=== PATIENT | male | born 1995 | race Caucasian/White ===

== ENCOUNTER 2018-12-27 15:53 | Emergency (ER) | payer BC ==
[~2018-12-27] VITALS: Ht 175.3 cm; Wt 90.7 kg
[~2018-12-27 15:53] MED LIST: CEPH500C PO
--- OUTSIDE RECORDS SUMMARY | 2018-12-27 15:57 | XMS REPORT ---
Author PELON Moreno [facility] e[employer] Address Unknown Phone Unavailable Care Team Providers Care Nursing Staff Development Coordinator Name Role Phone PELON CRANE CP Unavailable Allergies No Known Allergies Problems Problem Type Condition Code Onset Dates Condition Status Problem Other specified viral warts 078.19 Active Assessment Visit for TB skin test Z11.1 Active Problem Other general medical examination for administrative purposes V70.3 Active Medications No Known Medications Procedures Procedure Coding System Code Date TB INTRADERMAL TEST CPT-4 26183 April 13, 2016 Results No Known Results Summary Purpose eClinicalWorks Submission
--- OUTSIDE RECORDS SUMMARY | 2018-12-27 15:57 | XMS REPORT | Continuity of Care Document ---
Author Author [facility] Address Unknown Phone Unavailable Allergies Active Description Code Type Severity Reaction Onset Reported/Identified Relationship to Patient Clinical Status Yes No Known Drug Allergies [id number] Drug Allergy Unknown N/A 12/17/2013 Medications There is no data. Problems Date Dx Coded Attending Type Code Diagnosis Diagnosed By 07/13/2013 OSBALDO TOVAR APRN 078.19 WARTS, COMMON 07/13/2013 RACHID OWENS APRN 078.19 WARTS, COMMON 12/17/2013 ROBI DELGADO MD Ot 927.3 CRUSHING INJURY FINGER 12/17/2013 ROBI DELGADO MD Ot E000.8 OTHER EXTERNAL CAUSE STATUS 12/17/2013 ROBI DELGADO MD Ot E013.9 OTHER HOUSEHOLD MAINTENANCE 12/17/2013 ROBI DELGADO MD Ot E849.0 ACCIDENT IN HOME 12/17/2013 ROBI DELGADO MD Ot E918 CAUGHT BETWEEN OBJECTS 05/05/2014 RACHID OWENS APRN V70.3 SPORTS PHYSICAL Procedures [place] [address] WART DESTRUCT 1-14 (CRYO) 07/13/2013 04672 VISUAL ACUITY SCREEN 05/12/2014 Results There is no data. Encounters ACCT No. Visit Date/Time Discharge Status Pt. Type Provider Facility Loc./Unit Complaint [id number] 05/05/2014 09:55:00 05/05/2014 23:59:59 CLS Outpatient RACHID OWENS APRN [id number] 07/13/2013 14:35:00 07/13/2013 23:59:59 CLS Outpatient OSBALDO TOVAR APRN [id number] 12/17/2013 09:45:00 12/17/2013 11:04:00 DIS Emergency ROBI DELGADO MD Via [facility] ER LEFT MIDDLE FINGER LAC
--- OUTSIDE RECORDS SUMMARY | 2018-12-27 15:57 | XMS REPORT ---
Author RACHID Melendrez Organization [employer] Address Unknown Phone Unavailable Care Team Providers Care General Merchandise Salesperson Name Role Phone RACHID OWENS CP Unavailable Allergies No Known Allergies Problems Problem Type Condition Code Onset Dates Condition Status Problem Other specified viral warts 078.19 Active Assessment Encounter for immunization Z23 Active Problem Other general medical examination for administrative purposes V70.3 Active Medications No Known Medications Procedures Procedure Coding System Code Date PROQUAD (MMR/VARICELLA) CPT-4 08083 Aug 25, 2015 SINGLE IMMUNIZATION ADMIN CPT-4 82681 Aug 25, 2015 MENINGOCOCCAL (MENVEO) CPT-4 52911 Aug 25, 2015 IMMUNIZATION ADMIN, EACH ADD (please include units) CPT-4 19421 Aug 25, 2015 Results No Known Results Immunizations Vaccine Administration Date MENINGOCOCCAL (MENVEO) Aug 25, 2015 PROQUAD (MMR/VARICELLA) Aug 25, 2015 Summary Purpose eClinicalWorks Submission
[2018-12-27] MEDS ORDERED: TETANUS,DIPTH,PERTUSS P/F (BOOSTRIX) 0.5 ML VIAL IM ONE (16:00)
[2018-12-27] MEDS ORDERED: LIDOCAINE 1% INJ 20 ML 20 ML VIAL INJ ONE (16:00)
[2018-12-27] MEDS ORDERED: CEPHALEXIN 250 MG (KEFLEX) CAP PO ONE (16:00)
--- NOTE | 2018-12-27 16:26 | ED Upper Extremity ---
General Chief Complaint: Laceration Stated Complaint: R HAND LAC Nursing Triage Note: PATIENT AMBULATORY TO ER WITH COMPLAINT OF A LACERATION TO THE RIGHT 3RD FINGER. 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 PATIENT IS APPLYING DIRECT PRESSURE AND THERE IS MINIMAL BLEEDING PRESENT. Nursing Sepsis Screen: No Definite Risk Source: patient Exam Limitations: no limitations History of Present Illness Date Seen by Provider: Dec 27, 2018 Time Seen by Provider: 16:20 Initial Comments Patient was at work for himself when he cut the ulnar side of the right middle finger distally with a skill saw. Unsure of last tetanus vaccine Onset: just prior to arrival Severity: moderate Pain/Injury Location: left 3rd finger Modifying Factors: Worse With Movement Allergies and Home Medications Allergies Coded Allergies: No Known Drug Allergies (Unverified , 12/17/13) Home Medications Cephalexin 500 Mg Capsule, 500 MG PO TID Prescribed by: EDWARDO AVILEZ on 12/27/18 1627 Cephalexin Monohydrate 500 Mg Capsule, 1 EACH PO QID Prescribed by: ROBI DELGADO on 12/17/13 1057 Hydrocodone/Acetaminophen 1 Each Tablet, 1 EACH PO Q6H PRN for PAIN-MODERATE Prescribed by: EDWARDO AVILEZ on 12/27/18 1627 Patient Home Medication List Home Medication List Reviewed: Yes Review of Systems Constitutional: see HPI EENTM: see HPI Respiratory: no symptoms reported Cardiovascular: no symptoms reported Genitourinary: no symptoms reported Musculoskeletal: see HPI Skin: no symptoms reported Psychiatric/Neurological: No Symptoms Reported Past [id number]-[id number]-Zermlh Hx Patient Social History Alcohol Use: Occasionally Uses Recreational Drug Use: No Smoking Status: Never a Smoker 2nd Hand Smoke Exposure: No Recent Foreign Travel: No Contact w/Someone Who Travel: No Recent Infectious Disease Expo: No Recent Hopitalizations: No Physical Abuse: No Sexual Abuse: No Mistreated: No Fear: No Immunizations Up To Date Tetanus Booster (TDap): Unknown Seasonal Allergies Seasonal Allergies: No Past Medical History Surgeries: Yes (RIGHT WRIST, LEFT KNEE, DENTAL SURGERY) Orthopedic Respiratory: No Cardiac: No Neurological: No Genitourinary: No Gastrointestinal: No Musculoskeletal: No Endocrine: No HEENT: No Cancer: No Psychosocial: No Blood Disorders: No Physical Exam Vital Signs Vital Signs - First Documented 12/27/18 15:56 Temp 96.2 Pulse 68 Resp 16 B/P (MAP) 163/78 (106) Pulse Ox 98 O2 Delivery Room Air Capillary Refill : Less Than 3 Seconds Height, Weight, BMI Height: 5'9.00" Weight: 200lbs. oz. 90.387073no; BMI Method:Stated General Appearance: WD/WN, no apparent distress HEENT: PERRL/EOMI, normal ENT inspection Respiratory: no respiratory distress, no accessory muscle use Shoulder: normal inspection, non-tender Elbow/Forearm: normal inspection, non-tender Wrist: Yes normal inspection, Yes non-tender Hand: Right, laceration (1 cm laceration to the ulnar side distal tip of the right middle finger with an injury to the very lateral 1-2mm of the fingernail/ nail bed) Neurologic/Psychiatric: alert, normal mood/affect, oriented x 3 Skin: normal color, warm/dry Procedures/Interventions Wound Location: Upper Extremities Wound Length (cm): 1 Wound's Depth, Shape: linear, sub Q Wound Explored: clean Irrigated w/ Saline (ccs): 50 Anesthesia: 1% Lidocaine Volume Anesthetic (ccs): 1 Suture: Ethlion Suture Size: 5-0 Number of Sutures: 3 Layer Closure?: 1 Progress/Results/Core Measures Results/Orders My Orders Orders - EDWARDO AVILEZ APRN Dipht,Pertuss(Acell),Tet Adult (Boostrix (12/27/18 16:00) Cephalexin Capsule (Keflex Capsule) (12/27/18 16:00) Lidocaine 1% Inj 20 Ml (Xylocaine 1% Inj (12/27/18 16:00) Hand, Right, 3 Views (12/27/18 15:59) Medications Given in ED Current Medications Medications Dose Ordered Sig/Ashley Route Start Time Stop Time Status Last Admin Dose Admin Cephalexin HCl 500 mg ONCE ONCE PO 12/27/18 16:00 12/27/18 16:01 DC 12/27/18 16:18 500 MG Diphtheria/ Tetanus/Acell Pertussis 0.5 ml ONCE ONCE IM 12/27/18 16:00 12/27/18 16:01 DC 12/27/18 16:20 0.5 ML Lidocaine HCl 2 ml ONCE ONCE INJ 12/27/18 16:00 12/27/18 16:01 DC 12/27/18 16:05 2 ML Vital Signs/I&O 12/27/18 15:56 Temp 96.2 Pulse 68 Resp 16 B/P (MAP) 163/78 (106) Pulse Ox 98 O2 Delivery Room Air Blood Pressure Mean: 106 Departure Impression Primary Impression: Finger laceration Qualified Codes: S61.312A - Laceration without foreign body of right middle finger with damage to nail, initial encounter Disposition: HOME, SELF-CARE Condition: Stable Departure-Patient Inst. Decision time for Depature: 16:23 Referrals: MARIFER LOPEZ MD (PCP/Family) Primary Care Physician Add. Discharge Instructions: 1. Antibiotics. More as directed 2. Pain medication as needed 3. Return to ER in 7-10 days to have the stitches removed. Keep this clean dry and covered for about 24-48 hours. After that you may shower leading water run over it but do not soak it in water such as a dish sink, hot tub, bath tub or pool until stitches are removed. Keep this dressing in place for about 24 hours and then you may remove this and apply a simple Band-Aid. All discharge instructions reviewed with patient and/or family. Voiced understanding. Scripts Hydrocodone/Acetaminophen ([place] 5-325 Tablet) 1 Each Tablet 1 EACH PO Q6H PRN for PAIN-MODERATE MDD 10, #10 TAB Prov: EDWARDO AVILEZ APRN 12/27/18 Cephalexin (Keflex) 500 Mg Capsule 500 MG PO TID, #9 CAP Prov: EDWARDO AVILEZ APRN 12/27/18 Images Extremities-Upper 1 - EDWARDO AVILEZ APRN Dec 27, 2018 16:25
[2018-12-27] MEDS ORDERED: CEPH-507 PO (16:27)
[2018-12-27] MEDS ORDERED: HYDR-4226 PO (16:27)
--- NOTE | 2018-12-27 16:44 | Diagnostic Imaging Report ---
INDICATION: Right third finger laceration. EXAMINATION: Three views of the right hand were obtained. FINDINGS: Postop changes from previous internal fixation of the scaphoid. There is a tiny cortical defect on the ulnar side of the distal phalanx of the middle finger. IMPRESSION: Open cortical fracture of the distal phalanx of the right middle finger. Dictated by: Dictated on workstation # [id number]
[2018-12-27 16:56] VITALS: BP 138/88
== END 2018-12-27 16:58 | disposition home or self-care (01) ==
LOC: EDUNIT# 15:53 → ER 15:54
DX: S61.312A Laceration without foreign body of right middle finger with damage to nail, initial encounter (principal); Z98.890 Other specified postprocedural states; W29.8XXA Contact with other powered hand tools and household machinery, initial encounter; Y99.0 Civilian activity done for income or pay
CPT/HCPCS: 12001; 73130; 90715